=== PATIENT | male | born 1940 | race Caucasian/White ===

== ENCOUNTER 2017-03-16 06:10 | Inpatient (IN) | payer MEDICARE, OTHER ==
[2017-03-12 13:37] LABS: HEMATOCRIT 44.2 % (40.0-51.0); HEMOGLOBIN 15.3 g/dL (13.6-17.8)
[2017-03-12 14:10] LABS: BUN (BLOOD UREA NITROGEN) 17 MG/DL (6-23); CALCIUM, SERUM 8.7 MG/DL (8.5-10.4); CHLORIDE, SERUM 108 MMOL/L (96-112); CO2 (CARBON DIOXIDE) 27 MMOL/L (24-34); CREATININE 1.25 MG/DL (0.70-1.30); GFR AFRICAN AMERICAN 64 ML/MIN (>=60); GFR NON AFRICAN AMERICAN 55 ML/MIN (>=60); GLUCOSE, SERUM 122 MG/DL (60-99); POTASSIUM, SERUM 4.4 MMOL/L (3.5-5.3); SODIUM, SERUM 141 MMOL/L (135-148)
[~2017-03-16] VITALS: Ht 177.8 cm; Wt 95.3 kg
--- NOTE | ~2017-03-16 | OP ---
Record Of Operation [facility] [address] [place]. [address] NAME: RYAN WRIGHT THEDEVI : 36 STATUS : [facility]#: [id number] AGE: 76 ADM/REG DATE : 03/16/17 MR#: [id number] REPORT SERV DATE: 03/17/17 DICTATED BY: BILLY STAHL DATE: 03/17/17 REPORT STATUS : Draft TRANSCRIBED BY: MODL DATE: 03/17/17 DATE OF PROCEDURE: 03/16/2017 PREOPERATIVE DIAGNOSIS: Suspicious sessile polyp, mid transverse colon. POSTOPERATIVE DIAGNOSIS: 1. Suspicious sessile polyp, mid transverse colon. 2. Incarcerated umbilical hernia defect. PROCEDURE: 1. Robotic-assisted laparoscopic resection of a portion of transverse colon with intracorporeal reanastomosis. 2. Primary repair of umbilical hernia defect. DESCRIPTION OF OPERATIVE PROCEDURE: The patient was brought to operating suite, placed in supine position, underwent satisfactory general endotracheal anesthesia without incident. The skin of the abdomen was scrubbed, prepped, and draped in usual sterile fashion. 0.5% Marcaine with epinephrine was utilized at all trocar sites and also at the umbilical hernia repair site. Initially, a curvilinear infraumbilical incision was performed dissecting through the skin and subcutaneous tissue to the umbilical fascia, there was noted to be an incarcerated hernia defect. The fascia was grasped and elevated and a disposable Veress insufflation needle was inserted through the umbilical fascia into the peritoneal cavity. Intraperitoneal tip location was ascertained using the saline hanging drop method following which CO2 was insufflated for pressures of 15 mmHg throughout the case. After adequate insufflation pressure achieved, the Veress needle was removed, and an 8 mm robotic cannula was placed through the umbilical fascia into the peritoneal cavity with CO2 insufflation maintained. The 8 mm robotic camera was next inserted and visualization of the intraabdominal parietes revealed no evidence of injury from initial insufflation or puncture. Eventually three additional 8 mm cannulas were inserted horizontal and on the same plane as the umbilicus, two to the right and one to the left, and then finally a 12 mm system port was inserted through the left lateral abdominal wall through a previous paramedian incision for appendectomy, and then a high-flow CO2 insufflation maintained at this site. There were a total of five trocars placed. The patient had been placed in reverse Trendelenburg position and the patient cart was brought through this site and targeted with the robotic arms affixed to the four robotic cannulas and then targeting was performed. At this point, I broke scrub and sat at the surgeon console for the majority of the rest of the case. The patient had had a previous colonoscopy and there had been a sessile polyp in the mid transverse colon, which had been marked with dye by Dr. Bates. Initially, extensive adhesiolysis was performed of omental adhesions to the underneath surface of the previous Record Of Operation [address] [address] NAME: RYAN WRIGHT THEARERobbie : 36 STATUS : [facility]#: [id number] AGE: 76 ADM/REG DATE : 03/16/17 MR#: [id number] REPORT SERV DATE: 03/17/17 DICTATED BY: BILLY STAHL DATE: 03/17/17 REPORT STATUS : Draft TRANSCRIBED BY: BELKIS DATE: 03/17/17 right paramedian incisions, one for an appendix and another for an open cholecystectomy. This was successful in taking down the omentum from the underneath surface of the abdominal wall and from the leading edge of the right lobe of the liver. Then, the omentum was displaced superiorly and the transverse colon was visualized. The marking dye was noted almost at the exact mid transverse colon. Using the robotic vessel sealing device, avascular windows were created on either side of the intended specimen "sleeve" resection, and the Endo LARISA 45 linear stapler was inserted through the budget assistant port with two firings to completely transect the proximal and distal aspects from the transverse colon with further division of the vasculature to this section of the colon to the mesenteric root again with the vessel sealing device. The specimen was then placed inside an Endo retrieval pouch and removed through the budget assistant port after enlarging the skin and the muscular aponeurotic fascia at that site for specimen retrieval. The specimen was given to Dr. Walls for orientation and evaluation. This revealed clear margins. There were some "firmness" in the central aspect of the polyp. Further evaluation is pending. Intracorporeal reanastomosis was performed in an isoperistaltic fashion by lining up the edge of the proximal and distal transverse colon parallel to one another. Stay sutures were placed through the antimesenteric border of the bowel consisting of 3-0 Vicryl to orient the jordan of the colon parallel to one another. Following this, small enterotomies were made in the proximal aspect of both limbs of the colon, and again through the budget assistant port, an Endo-LARISA 45 linear stapler was inserted and used to pass through the enterotomies of the proximal and distal transverse colon. The antimesenteric portions of the bowel were lined up to the appropriate level. The device was closed and fired creating a 45 mm anastomosis. The stapler was removed. Enterotomies created for the insertion of the stapler were closed in a standard two-layer fashion with an inner running imbricating suture of 3-0 Vicryl placed in a canal fashion mucosa to mucosa and then an outer seromuscular closure with again interrupted 3-0 Vicryl multiple interrupted suturing. Hemostasis was assured and then laparoscopy was terminated by undocking the robot and removing the arms and CO2 was allowed to egress from peritoneal cavity upon removal of the robotic trocars. No muscular bleeding was noted. Attention was then turned to closing the specimen retrieval site as well as repairing the umbilical hernia defect. Initially, the lateral abdominal wall musculature was closed in layers with interrupted [id number] sutures of 0 Vicryl for the transverse abdominis/internal oblique musculature as well as external oblique musculature. Subcutaneous tissue closed with interrupted 3-0 Vicryl and subcuticular stitch with 4-0 Vicryl for the skin at all sites. Record Of Operation [facility] [address] [facility] [place]. [address] NAME: RYAN WRIGHT : 36 STATUS : [facility]#: [id number] AGE: 76 ADM/REG DATE : 03/16/17 MR#: [id number] REPORT SERV DATE: 03/17/17 DICTATED BY: BILLY STAHL DATE: 03/17/17 REPORT STATUS : Draft TRANSCRIBED BY: MODJr DATE: 03/17/17 Special attention was turned to the umbilical defect. The umbilical skin was elevated off the umbilical fascia and hernia sac, which was excised along with preperitoneal fat 360- degree clearance of the aponeurotic fascia around the umbilicus was performed. Using 0 Ethibond in a "vpee-tads-cxque" interrupted vertical mattress fashion, the cephalad aspect of the umbilical fascia was drawn over the caudad aspect, and these sutures were tied down and cut. Like all other sites, subcutaneous tissue was closed with interrupted 3-0 Vicryl, running subcuticular stitch with 4-0 Vicryl for the skin after excision of redundant skin. Dermabond skin adhesive placed to all sites. The patient tolerated the procedure well and was returned to PACU in stable condition. At the termination of the procedure, sponge, needle, lap, and instrument counts were correct x3. ESTIMATED BLOOD LOSS: 15-20 mL. WR/MODL Billy Stahl M.D. / [id number] CC: Megan Quinteros KATHLEEN L
[~2017-03-16 06:10] MED LIST: CINNAMON PO; CYANO1000T PO; POTTASIUM PO; VITE1000 PO
[2017-03-18 05:57] LABS: BASOPHILS 0.1 %; BASOPHILS ABSOLUTE 0.01 10/3/uL (0.0-0.16); EOSINOPHILS 0.9 %; EOSINOPHILS ABSOLUTE 0.08 10/3/uL (0.0-0.53); HEMATOCRIT 42.2 % (40.0-51.0); HEMOGLOBIN 14.3 g/dL (13.6-17.8); IMMATURE GRANULOCYTES 0.2 %; IMMATURE GRANULOCYTES ABSOLUTE 0.02 10/3/uL (0.0-0.11); LYMPHOCYTES 20.6 %; LYMPHOCYTES ABSOLUTE 1.93 10/3/uL (0.67-4.30); MANUAL DIFF NO %; MEAN CORPUS HGB CONC 33.9 g/dL (32.0-36.0); MEAN CORPUSCULAR HEMOGLOB 29.4 pg (26.0-34.0); MEAN CORPUSCULAR VOLUME 86.8 fL (80-100); MEAN PLATELET VOLUME 11.5 fL (9.2-13.0); MONOCYTES 11.2 %; MONOCYTES ABSOLUTE 1.05 10/3/uL (0.21-1.20); NEUTROPHILS ABSOLUTE 6.28 10/3/uL (2.02-8.40); PLATELET COUNT 165 10/3/uL (150-400); RBC DISTRIBUTION WIDTH 13.4 % (12.0-16.0); RED CELL COUNT 4.86 10/6/uL (4.7-6.1); WHITE BLOOD CELLS 9.4 10/3/uL (4.5-10.5)
[2017-03-18 06:06] LABS: BUN (BLOOD UREA NITROGEN) 18 MG/DL (6-23); CALCIUM, SERUM 8.3 MG/DL (8.5-10.4); CHLORIDE, SERUM 105 MMOL/L (96-112); CO2 (CARBON DIOXIDE) 26 MMOL/L (24-34); CREATININE 1.18 MG/DL (0.70-1.30); GFR AFRICAN AMERICAN 68 ML/MIN (>=60); GFR NON AFRICAN AMERICAN 59 ML/MIN (>=60); SODIUM, SERUM 139 MMOL/L (135-148)
[2017-03-18 06:08] LABS: GLUCOSE, SERUM 266 MG/DL (60-99)
[2017-03-19 05:33] LABS: BASOPHILS 0.1 %; BASOPHILS ABSOLUTE 0.01 10/3/uL (0.0-0.16); EOSINOPHILS 0.7 %; EOSINOPHILS ABSOLUTE 0.07 10/3/uL (0.0-0.53); HEMATOCRIT 46.4 % (40.0-51.0); HEMOGLOBIN 16.1 g/dL (13.6-17.8); IMMATURE GRANULOCYTES 0.2 %; IMMATURE GRANULOCYTES ABSOLUTE 0.02 10/3/uL (0.0-0.11); LYMPHOCYTES 21.4 %; LYMPHOCYTES ABSOLUTE 2.25 10/3/uL (0.67-4.30); MEAN CORPUS HGB CONC 34.7 g/dL (32.0-36.0); MEAN CORPUSCULAR HEMOGLOB 29.9 pg (26.0-34.0); MEAN CORPUSCULAR VOLUME 86.1 fL (80-100); MEAN PLATELET VOLUME 11.8 fL (9.2-13.0); MONOCYTES 12.1 %; MONOCYTES ABSOLUTE 1.27 10/3/uL (0.21-1.20); NEUTROPHILS 65.5 %; PLATELET COUNT 191 10/3/uL (150-400); RBC DISTRIBUTION WIDTH 13.4 % (12.0-16.0); RED CELL COUNT 5.39 10/6/uL (4.7-6.1); WHITE BLOOD CELLS 10.5 10/3/uL (4.5-10.5)
[2017-03-19 05:34] LABS: MANUAL DIFF NO %
[2017-03-19 05:45] LABS: BUN (BLOOD UREA NITROGEN) 16 MG/DL (6-23); CHLORIDE, SERUM 101 MMOL/L (96-112); CO2 (CARBON DIOXIDE) 24 MMOL/L (24-34); CREATININE 1.23 MG/DL (0.70-1.30); GFR AFRICAN AMERICAN 65 ML/MIN (>=60); GFR NON AFRICAN AMERICAN 56 ML/MIN (>=60); POTASSIUM, SERUM 4.2 MMOL/L (3.5-5.3); SODIUM, SERUM 133 MMOL/L (135-148)
[2017-03-19 05:46] LABS: CALCIUM, SERUM 9.4 MG/DL (8.5-10.4); GLUCOSE, SERUM 156 MG/DL (60-99)
[2017-03-21 06:25] LABS: BASOPHILS 0.1 %; BASOPHILS ABSOLUTE 0.01 10/3/uL (0.0-0.16); EOSINOPHILS 0.9 %; EOSINOPHILS ABSOLUTE 0.09 10/3/uL (0.0-0.53); HEMATOCRIT 45.8 % (40.0-51.0); HEMOGLOBIN 16.3 g/dL (13.6-17.8); IMMATURE GRANULOCYTES 0.2 %; IMMATURE GRANULOCYTES ABSOLUTE 0.02 10/3/uL (0.0-0.11); LYMPHOCYTES 15.2 %; LYMPHOCYTES ABSOLUTE 1.53 10/3/uL (0.67-4.30); MEAN CORPUS HGB CONC 35.6 g/dL (32.0-36.0); MEAN CORPUSCULAR VOLUME 84.2 fL (80-100); MEAN PLATELET VOLUME 11.7 fL (9.2-13.0); MONOCYTES 9.2 %; MONOCYTES ABSOLUTE 0.92 10/3/uL (0.21-1.20); NEUTROPHILS 74.4 %; NEUTROPHILS ABSOLUTE 7.47 10/3/uL (2.02-8.40); PLATELET COUNT 209 10/3/uL (150-400); RED CELL COUNT 5.44 10/6/uL (4.7-6.1)
[2017-03-21 06:26] LABS: MANUAL DIFF NO %
[2017-03-21 06:34] LABS: A/G RATIO 0.8 (0.7-1.9); ALBUMIN 3.2 G/DL (3.5-5.0); ALKALINE PHOSPHATASE 71 U/L (45-117); BUN (BLOOD UREA NITROGEN) 21 MG/DL (6-23); CALCIUM, SERUM 8.8 MG/DL (8.5-10.4); CHLORIDE, SERUM 101 MMOL/L (96-112); CO2 (CARBON DIOXIDE) 25 MMOL/L (24-34); CREATININE 1.15 MG/DL (0.70-1.30); GFR AFRICAN AMERICAN 70 ML/MIN (>=60); GFR NON AFRICAN AMERICAN 61 ML/MIN (>=60); GLOBULIN 3.9 G/DL (2.5-4.1); GLUCOSE, SERUM 142 MG/DL (60-99); POTASSIUM, SERUM 4.3 MMOL/L (3.5-5.3); SGOT(AST) 15 U/L (5-40); SGPT(ALT) 26 U/L (5-65); SODIUM, SERUM 136 MMOL/L (135-148); TOTAL BILIRUBIN 0.9 MG/DL (0-1.2); TOTAL PROTEIN 7.1 G/DL (6.0-8.5)
[2017-03-22 05:39] LABS: BASOPHILS 0.2 %; BASOPHILS ABSOLUTE 0.02 10/3/uL (0.0-0.16); EOSINOPHILS 4.3 %; EOSINOPHILS ABSOLUTE 0.35 10/3/uL (0.0-0.53); HEMATOCRIT 44.3 % (40.0-51.0); HEMOGLOBIN 15.3 g/dL (13.6-17.8); IMMATURE GRANULOCYTES 0.2 %; IMMATURE GRANULOCYTES ABSOLUTE 0.02 10/3/uL (0.0-0.11); LYMPHOCYTES 23.1 %; LYMPHOCYTES ABSOLUTE 1.88 10/3/uL (0.67-4.30); MEAN CORPUS HGB CONC 34.5 g/dL (32.0-36.0); MEAN CORPUSCULAR HEMOGLOB 29.5 pg (26.0-34.0); MEAN CORPUSCULAR VOLUME 85.5 fL (80-100); MEAN PLATELET VOLUME 12.2 fL (9.2-13.0); MONOCYTES 9.2 %; MONOCYTES ABSOLUTE 0.75 10/3/uL (0.21-1.20); NEUTROPHILS ABSOLUTE 5.12 10/3/uL (2.02-8.40); PLATELET COUNT 178 10/3/uL (150-400); RBC DISTRIBUTION WIDTH 12.9 % (12.0-16.0); RED CELL COUNT 5.18 10/6/uL (4.7-6.1); WHITE BLOOD CELLS 8.1 10/3/uL (4.5-10.5)
[2017-03-22 05:48] LABS: MANUAL DIFF NO %
[2017-03-22 05:56] LABS: A/G RATIO 0.9 (0.7-1.9); ALBUMIN 3.1 G/DL (3.5-5.0); ALKALINE PHOSPHATASE 63 U/L (45-117); BUN (BLOOD UREA NITROGEN) 15 MG/DL (6-23); CALCIUM, SERUM 8.2 MG/DL (8.5-10.4); CHLORIDE, SERUM 105 MMOL/L (96-112); CO2 (CARBON DIOXIDE) 24 MMOL/L (24-34); CREATININE 1.17 MG/DL (0.70-1.30); GFR AFRICAN AMERICAN 69 ML/MIN (>=60); GFR NON AFRICAN AMERICAN 59 ML/MIN (>=60); GLOBULIN 3.5 G/DL (2.5-4.1); GLUCOSE, SERUM 153 MG/DL (60-99); SGOT(AST) 14 U/L (5-40); SGPT(ALT) 22 U/L (5-65); SODIUM, SERUM 137 MMOL/L (135-148); TOTAL BILIRUBIN 1.3 MG/DL (0-1.2); TOTAL PROTEIN 6.6 G/DL (6.0-8.5)
[2017-03-23] MEDS ORDERED: CIP5 PO (11:13)
== END 2017-03-23 13:38 | disposition home or self-care (01) | DRG 331 ==
LOC: ENRESERVDT → ENRESERVTM → ENRESERV → 5SO 06:10 → SDC/OF 06:10 → 5SO 15:27
PROVIDERS: Specialist
PROC: 0DNS4ZZ (ICD-10-PCS; 2017-03-16)
PROC: 0DBL4ZZ Excision of Transverse Colon, Percutaneous Endoscopic Approach (ICD-10-PCS; principal; 2017-03-16 07:00)
PROC: 0WQF4ZZ Repair Abdominal Wall, Percutaneous Endoscopic Approach (ICD-10-PCS; 2017-03-16 07:00)
PROC: 8E0W4CZ Robotic Assisted Procedure of Trunk Region, Percutaneous Endoscopic Approach (ICD-10-PCS; 2017-03-16 07:00)
DX: K63.5 Polyp of colon (principal); E11.9 Type 2 diabetes mellitus without complications; K66.0 Peritoneal adhesions (postprocedural) (postinfection); K42.9 Umbilical hernia without obstruction or gangrene; Z87.891 Personal history of nicotine dependence
CPT/HCPCS: 74020; 80048; 80053; 82962; 83735; 85014; 85018; 85025; 88309; 93005; A9270-GY; C9113; J0690; J0694; J2250; J2405; J2710; J2795; J3010